=== PATIENT | female | born 1970 | race Asian ===

== ENCOUNTER → 2016-11-09 | Outpatient (CLI) | payer BC ==
--- NOTE | 2016-11-10 11:46 | RADRPT ---
PROCEDURE: XR bilateral knees. CLINICAL INDICATION: AP weightbearing, PA weightbearing, lateral weightbearing and sunrise views TECHNIQUE: 3 views are available for review. COMPARISON: None available FINDINGS: There is mild narrowing of the right and left medial tibial femoral compartments. The osseous struct ures are otherwise normal in mineralization, architecture and alignment. No fractures are identifie d. No osseous lesions are identified. The soft tissues are unremarkable. IMPRESSION: Mild narrowing of the right and left medial tibial femoral compartments (query osteoarthrosis) RPTAT: [facility] .Jose J Delacruz MD, MD Date Time Electronically viewed and signed by .Jose J Delacruz MD, MD on 11/10/2016 11:46 .B/
== END | disposition home or self-care (01) ==
LOC: HKI 11:04
PROVIDERS: ATTEND Orthopaedic Surgery
DX: M25.561 Pain in right knee (principal); M25.562 Pain in left knee; F17.200 Nicotine dependence, unspecified, uncomplicated; Z91.81 History of falling
CPT/HCPCS: 73564; G0463